=== PATIENT | female | born 1990 | race Caucasian/White ===

== ENCOUNTER → 2017-06-27 00:30 | Observation (INO) ==
[2017-06-26 23:43] LABS: Bilirubin,Urine Negative (Negative); Blood,Urine Negative (Negative); Clarity,Urine Cloudy (Clear); Color,Urine Dark Yellow (Yellow); Glucose,Urine (UA) Normal (Normal); Ketones,Urine Negative (Negative); Leukocyte Esterase,Urine Moderate (Negative); Nitrite,Urine Negative (Negative); PH,Urine 6.5 pH Units (5.0-8.0); Protein,Urine Trace mg/dL (Neg-Trace); Specific Gravity,Urine 1.021 (1.010-1.025); Urobilinogen,Urine Normal (Normal)
[2017-06-26 23:46] LABS: Bacteria,Urine Many per hpf (None-Few); RBC,Urine 0-3 per hpf (0-3); Squamous Epithelial Cell,Urine Many per lpf (None-Few); WBC,Urine 30-50 per hpf (0-3)
[2017-06-26 23:49] LABS: Amphetamine Screen,Urine Negative ng/mL (Cutoff=1000); Barbiturate Screen,Urine Negative ng/mL (Cutoff=200); Benzodiazepines Screen,Urine Negative ng/mL (Cutoff=200); Cannabinoid Screen,Urine Negative ng/mL (Cutoff = 50); Cocaine Screen,Urine Negative ng/mL (Cutoff= 300); Opiate Screen,Urine Negative ng/mL (Cutoff=300); Phencyclidine Screen,Urine Negative ng/mL (Cutoff=25)
[2017-06-26 23:53] LABS: Calcium Oxalate Crystals,Urine Present
[2017-06-26 23:54] LABS: Yeast,Urine Few per hpf (None Seen)
--- NOTE | 2017-06-27 00:13 | OB/GYN Progress Note ---
Date of Encounter: 06/27/17 Time of Encounter: 00:03 - Assessment and Plan (1) 27 weeks gestation of Current Visit: Yes Status: Acute (2) Abdominal pain affecting Current Visit: Yes Status: Acute UA with many squamous, UA sent for culture. (3) Vaginal bleeding in Current Visit: Yes Status: Acute Speculum exam shows no bleeding noted. small amount of thin white discharge. denies itching or burning. negative fern Discharged home with labor precautions. Subjective - Subjective Interval history: 27+2 gestation complains of abdominal pain in RLQ that feels like someone is sticking a needle in at the same point and twisting it. She then had a small amount of dark red/brown bleeding this evening. Reports current good movement, but was decreased earlier in the day. Denies leaking of fluid. Antepartum ROS: vaginal bleeding, movement normal, contractions (Pt states has a few contractions a day as baseline. ), no loss of fluid Objective - Vital Signs Vital Signs: Intake and Output 06/26/17 06/26/17 06/27/17 15:59 23:59 07:59 Other: Weight 85 kg - Exam FHR: auscultation normal FHR comments: Baseline 135 Auscultation: bilateral: normal Abdomen: Present: normal appearance, soft, gravid Uterus: Present: normal Cervical dilation: fingertip/ long - Labs Labs: Abnormal lab results Urine Clarity Cloudy (Clear) A 06/26/17 23:38 Ur Leukocyte Esterase Moderate (Negative) H 06/26/17 23:38 Urine Microscopic WBC 30-50 per hpf (0-3) H 06/26/17 23:38 Ur Squamous Epith Cells Many per lpf (None-Few) H 06/26/17 23:38 Urine Bacteria Many per hpf (None-Few) H 06/26/17 23:38 Urine Yeast Few per hpf (None Seen) H 06/26/17 23:38 Ur Culture Indicated? YES (NO) A 06/26/17 23:38
[2017-06-27 01:25] LABS: Candida DNA ***DETECTED*** (Not Detect); Gardnerella DNA Not Detected (Not Detect); Trichomonas DNA Not Detected (Not Detect)
== END | disposition home or self-care (01) ==
LOC: 1NENULAB
PROVIDERS: ADMIT Advanced Practice Midwife; ATTEND Advanced Practice Midwife

== ENCOUNTER → 2017-07-26 23:18 | Observation (INO) ==
[2017-07-26 21:02] LABS: Bilirubin,Urine Small (Negative); Blood,Urine Negative (Negative); Clarity,Urine Turbid (Clear); Color,Urine Dark Yellow (Yellow); Glucose,Urine (UA) Normal (Normal); Ketones,Urine Trace mg/dL (Negative); Leukocyte Esterase,Urine Moderate (Negative); Nitrite,Urine Negative (Negative); PH,Urine 6.5 pH Units (5.0-8.0); Protein,Urine Trace mg/dL (Neg-Trace); Specific Gravity,Urine 1.024 (1.010-1.025); Urobilinogen,Urine Normal (Normal)
[2017-07-26 21:04] LABS: Bacteria,Urine Many per hpf (None-Few); RBC,Urine 0-3 per hpf (0-3); Squamous Epithelial Cell,Urine Many per lpf (None-Few); WBC,Urine 50-100 per hpf (0-3)
[2017-07-26 21:17] LABS: Hyaline Casts,Urine Few per lpf (None-Few); Uric Acid Crystals,Urine Present
[2017-07-26 22:04] LABS: Amphetamine Screen,Urine Negative ng/mL (Cutoff=1000); Barbiturate Screen,Urine Negative ng/mL (Cutoff=200); Benzodiazepines Screen,Urine Negative ng/mL (Cutoff=200); Cannabinoid Screen,Urine Negative ng/mL (Cutoff = 50); Cocaine Screen,Urine Negative ng/mL (Cutoff= 300); Opiate Screen,Urine Negative ng/mL (Cutoff=300); Phencyclidine Screen,Urine Negative ng/mL (Cutoff=25)
--- NOTE | 2017-07-26 23:07 | Discharge Summary ---
Date of Encounter: 07/26/17 Time of Encounter: 23:07 - Discharge Diagnosis (1) 32 weeks gestation of Priority: Primary Status: Acute Comments: labor evaluation. Continuous monitoring (2) Non-stress test reactive Priority: Secondary Status: Acute Comments: 125 bpm, moderate variability, +15x15 accels no decels. Category I tracing. (3) contractions Priority: Secondary Status: Acute Comments: < 6 contractions per hour. Pt reports they have improved and are not painful. (4) UTI (urinary tract infection) Priority: Secondary Status: Acute Comments: Treat with Macrobid 100 mg po bid x 7 days. Qualifiers: Urinary tract infection type: acute cystitis Hematuria presence: without hematuria Qualified Code(s): N30.00 - Acute cystitis without hematuria - Discharge Medications Prescriptions: Nitrofurantoin Monohyd/M-Cryst [Macrobid 100 mg Capsule] 100 mg PO BID #14 capsule Home Medications: Levothyroxine 12/04/16 [History] Multi Tablet 12/04/16 [History] Nitrofurantoin Monohyd/M-Cryst [Macrobid 100 mg Capsule] 100 mg PO BID #14 capsule 07/26/17 [Rx] Allergies/Adverse Reactions: 3 Allergy/AdvReac Type Severity Reaction Status Date / Time No Known Allergies Allergy Verified 07/26/17 20:47 Data Procedures and tests throughout hospitalization: Laboratory Tests 07/26/17 07/26/17 20:50 20:50 Urine Color Dark Yellow Urine Clarity Turbid A Urine pH 6.5 Ur Specific [place] 1.024 Urine Protein Trace Urine Glucose (UA) Normal Urine Ketones Trace H Urine Blood Negative Urine Nitrite Negative Urine Bilirubin Small H Urine Urobilinogen Normal Ur Leukocyte Esterase Moderate H Urine Microscopic RBC 0-3 Urine Microscopic WBC 50-100 H Ur Squamous Epith Cells Many H Uric Acid Crystals Present Urine Bacteria Many H Hyaline Casts Few Ur Culture Indicated? YES A Urine Opiates Screen Negative Ur Barbiturates Screen Negative Ur Phencyclidine Scrn Negative Ur Amphetamines Screen Negative U Benzodiazepines Scrn Negative Urine Cocaine Screen Negative U Marijuana (THC) Screen Negative Labs on day of discharge: Labs from last 24 hours 07/26/17 07/26/17 20:50 20:50 Urine Color Dark Yellow Urine Clarity Turbid A Urine pH 6.5 Ur Specific [place] 1.024 Urine Protein Trace Urine Glucose (UA) Normal Urine Ketones Trace H Urine Blood Negative Urine Nitrite Negative Urine Bilirubin Small H Urine Urobilinogen Normal Ur Leukocyte Esterase Moderate H Urine Microscopic RBC 0-3 Urine Microscopic WBC 50-100 H Ur Squamous Epith Cells Many H Uric Acid Crystals Present Urine Bacteria Many H Hyaline Casts Few Ur Culture Indicated? YES A Urine Opiates Screen Negative Ur Barbiturates Screen Negative Ur Phencyclidine Scrn Negative Ur Amphetamines Screen Negative U Benzodiazepines Scrn Negative Urine Cocaine Screen Negative U Marijuana (THC) Screen Negative Date of admission: 07/26/17 20:10 Discharging clinician: Sayda Paige Anticipated date of discharge: 07/26/17 - Patient Status Disposition: Home, Self-Care Condition: Good Functional capacity at discharge: independent ambulation - Discharge Instructions Follow Up With: Jaycee Carvalho DO [Partnered Physician] - Additional Instructions: LABOR AND DELIVERY DISCHARGE INSTRUCTIONS Signs and Symptoms to be Reported to your Doctor Immediately: * Sudden gush, continuous or intermittent lead of fluid from vagina (note the time of gush and color of fluid) * Onset of bright red vaginal bleeding with or without pain (if you had a vaginal exam during this visit you may notice some dark red spotting. This is normal.) * Lower abdominal cramping or backache that is premenstrual-like feeling. * More than 6 contractions in one hour. * Burning during urination, having to urinate more frequently or pain in your mid-back. * A change in the baby's activity. This could be an increase or decrease in activity. * Severe headache which does not go away with tylenol. * Sudden swelling in the face, hands, arms and/or legs. * Upper abdominal pain - sometimes associated with heartburn or nausea and is not relieved by Maalox, Mylanta or Tums. * Dizziness or blurred vision or visual disturbances (seeing stars/lights). * Kick Counts One hour after a meal, lay down on one side in a quiet place. Count the number of sonam the baby moves during an hour. If less than 6 movements, notify your physician. Diet: *Force fluids - 8-10 tall glasses of fluid per day. May include popsicles and jello. *Limit caffeine - this includes chocolate, coffee, tea, any soft drink containing such as all ruby, Russ Yellow and Mountain Dew Follow-up with as scheduled. - Diet and Activity Activity: resume usual activities as tolerated Diet: regular diet Hospital Course GRIP BOSS Time Attestation: Total time spent providing and/or coordinating discharge services: Exam - Constitutional General appearance IM: cooperative, A&O X 3, no acute distress - Respiratory Respiratory exam: Present: CTAB - Cardiovascular Cardiovascular exam IM: Present: RRR, +S1, +S2 - GI/Abdominal GI/Abdominal exam IM: normal bowel sounds - Rectal Rectal exam: deferred - Extremities Exam Extremities exam IM: Present: full ROM, normal capillary refill, normal inspection. Absent: calf tenderness, pedal edema - Neurological Exam Neurological exam: alert, oriented X3 - VTE Reasons for not Prescribing Prophylaxis: Treatment not Indicated - Low risk for VTE
== END | disposition home or self-care (01) ==
LOC: 1NENULAB
PROVIDERS: ADMIT Obstetrics & Gynecology; ATTEND Obstetrics & Gynecology

== ENCOUNTER 2017-09-05 07:59 | Inpatient (IN) ==
--- NOTE | 2017-09-04 23:47 | OB/GYN Progress Note ---
Date of Encounter: 09/05/17 Time of Encounter: 23:45 - Assessment and Plan (1) False labor Current Visit: Yes Status: Acute No cervical change noted since exam in office earlier today. Discharge home with precautions once reactive NST. (2) 37 weeks gestation of Current Visit: Yes Status: Acute Subjective - Subjective Interval history: 26 year-old presenting at 37w1d with c/o contractions. She denies LOF or VB. Good FM. No other complaints. Antepartum ROS: movement normal, contractions, no loss of fluid, no vaginal bleeding Objective - Vital Signs Vital Signs: Intake and Output 09/04/17 09/04/17 09/04/17 07:59 15:59 23:59 Other: Weight 85.4 kg Patient Weight 09/04/17 23:59 Weight 85.4 kg - Exam FHR: category 1 FHR comments: NST reactive Abdomen: Present: soft, gravid. Absent: tenderness Uterus: Absent: tenderness Cervical dilation: 3cm x 2 exams per RN Cervix effacement: 50
[2017-09-05 00:41] LABS: Amphetamine Screen,Urine Negative ng/mL (Cutoff=1000); Barbiturate Screen,Urine Negative ng/mL (Cutoff=200); Benzodiazepines Screen,Urine Negative ng/mL (Cutoff=200); Cannabinoid Screen,Urine Negative ng/mL (Cutoff = 50); Cocaine Screen,Urine Negative ng/mL (Cutoff= 300); Opiate Screen,Urine Negative ng/mL (Cutoff=300); Phencyclidine Screen,Urine Negative ng/mL (Cutoff=25)
[2017-09-05 01:21] LABS: Basophils % 0.3 %; Eosinophils # 0.1 K/mcL (0.0-0.6); Eosinophils % 0.7 %; Hematocrit 30.9 % (35.3-44.9); Hemoglobin 10.6 g/dL (11.5-15.4); Immature Granulocytes % 1.3 % (0-4); Lymphocytes # 3.2 K/mcL (0.6-4.6); Lymphocytes % 21.6 %; Mean Corpuscular HGB Conc 34.3 g/dL (31.6-35.5); Mean Corpuscular Hemoglobin 32.4 pg (28.0-33.3); Mean Corpuscular Volume 94.5 fL (83.0-100.0); Mean Platelet Volume 10.6 fL (9.4-12.4); Monocytes # 0.7 K/mcL (0.0-1.3); Neutrophils # 10.5 K/mcL (1.6-8.9); Platelet Count 287 K/mcL (140-400); Red Blood Count 3.27 M/mcL (3.82-4.97); Red Cell Distribution Width 13.4 % (11.5-14.5); Segmented Neutrophils % 71.1 %
[2017-09-05 01:33] LABS: BUN/Creatinine Ratio 11 (6-26); Blood Urea Nitrogen 6 mg/dL (7-20); Calcium 9.9 mg/dL (8.6-10.8); Carbon Dioxide 20 mEq/L (19-29); Chloride 106 mEq/L (98-109); Glucose 81 mg/dL (70-99); Osmolality,Calculated 279 (280-300); Potassium 3.7 mEq/L (3.5-4.5); Sodium 136 mEq/L (136-145); eGFR For African Americans > 60 (> 60); eGFR For Non-African Americans > 60 (> 60)
--- NOTE | 2017-09-05 03:05 | OB/GYN History & Physical ---
Date of Encounter: 09/05/17 Time of Encounter: 02:58 Assessment and Plan (1) False labor Current visit: Yes Status: Acute No cervical change noted. (2) 37 weeks gestation of Current visit: Yes Status: Acute (3) Non-reactive NST (non-stress test) Current visit: Yes Status: Acute Pt has been given an IV fluid bolus and has been repositioned multiple times. Occassional variable decelerations noted. The tracing has never been reactive. Plan for continuous monitoring until am. Will consider BPP vs IOL in am. (4) [place]'s duct cyst Current visit: Yes Status: Acute Pt has had difficulty voiding this evening due to the size of the cyst being approx 2-3cm over urethra. Will consider be[place] if unable to void. Plan is to consult urology following delivery. History of Present Illness Chief complaint: non-reactive NST HPI: Ms. Osorio is a 26 year old female presenting at 37w2d with c/o contractions. She was found to be having false labor. While in triage the FHT tracing was non-reactive. This has been complicated by history of previous child with Dravet Syndrome(). SHe had CVS testing that was normal. 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 Past Med Surg Social Fam HX - Past Medical History Medical history: non-contributory Psychiatric history: anxiety, depression - Past Surgical History Surgical History: other - Social History Smoking Status: Current every day smoker Packs per day: 1/2 Smokeless Tobacco Status: No Alcohol use: none Drug use: none - Family History Mother Adopted: No Family Member Ethnicity: Non- Living Status: Still Living Hx Family Cardiac Disorders: No Hx Family Respiratory Disorders: No Hx Family Cancer: No Hx Family GI Disorders: No Hx Family Genitourinary Disorders: No Hx Family Endocrine Disorder: No Hx Family Musculoskeletal Disorders: No Hx Family Neuromuscular Disorders: No Hx Family Neurologic Disorders: No Hx Family HEENT Disorders: No Hx Family Autoimmune Disorders: No Hx Family Reproductive Disorders: No Hx Family Psychosocial Disorders: No Hx Family Medical Disorders: No Obstetrical History - Pregnancies : 3 Para: 1 Term: 1 : 0 Ab's: 1 Livin Medications and Allergies Levothyroxine 15 mcg PO DAILY 12/04/16 [History] Multi Tablet 1 tab PO DAILY 12/04/16 [History] 3 Allergy/AdvReac Type Severity Reaction Status Date / Time No Known Allergies Allergy Verified 08/22/17 22:57 Review of System OB All systems PM: reviewed and no additional remarkable complaints except as stated Exam - Constitutional Constitutional: well developed, well nourished, no acute distress - HEENT HEENT: Mucus Membranes Moist - Lungs Respiratory exam: CTAB - Cardiovascular Cardiovascular exam: RRR, +S1, +S2 - Abdomen Abdomen: Present: gravid, non tender - Extremities Extremities exam: normal inspection - Cervix Dilation: 3 - Anus/Rectum Anus/Rectum: Present: normal perianal skin Results Result Diagrams: 09/05/17 00:53 09/05/17 00:53 Abnormal lab results WBC 14.7 K/mcL (4.3-11.1) H 09/05/17 00:53 RBC 3.27 M/mcL (3.82-4.97) L 09/05/17 00:53 Hgb 10.6 g/dL (11.5-15.4) L 09/05/17 00:53 Hct 30.9 % (35.3-44.9) L 09/05/17 00:53 Neutrophils # 10.5 K/mcL (1.6-8.9) H 09/05/17 00:53 BUN 6 mg/dL (7-20) L 09/05/17 00:53 Creatinine 0.56 mg/dL (0.57-1.11) L 09/05/17 00:53 Calculated Osmolality 279 (280-300) L 09/05/17 00:53 All other labs normal. - VTE Reasons for not Prescribing Prophylaxis: Treatment not Indicated - Low risk for VTE
[2017-09-05 03:23] LABS: Bilirubin,Urine Small (Negative); Blood,Urine Negative (Negative); Clarity,Urine Cloudy (Clear); Color,Urine Dark Yellow (Yellow); Glucose,Urine (UA) Normal (Normal); Ketones,Urine Negative (Negative); Leukocyte Esterase,Urine Negative (Negative); Nitrite,Urine Negative (Negative); Protein,Urine Trace mg/dL (Neg-Trace); Specific Gravity,Urine 1.023 (1.010-1.025); Urobilinogen,Urine Normal (Normal)
[2017-09-05 03:41] LABS: Hyaline Casts,Urine None Seen per lpf (None-Few); Mucus,Urine Moderate (Few); RBC,Urine 0-3 per hpf (0-3); Renal Epithelial Cells,Urine Moderate per hpf (None-Few); Squamous Epithelial Cell,Urine Few per lpf (None-Few); WBC,Urine 0-3 per hpf (0-3)
[2017-09-05 03:42] LABS: Bacteria,Urine Few per hpf (None-Few); Calcium Oxalate Crystals,Urine Present
[~2017-09-05 07:59] MED LIST: *HR* Nalbuphine 20 MG/ML AMPUL IVP PRN; Famotidine 20 MG/2 ML VIAL IVP PRN; Metoclopramide 10 MG/2 ML VIAL IVP PRN; Naloxone 0.4 MG/ML INJ IVP PRN; Ondansetron 4 MG/2 ML VIAL IVP PRN; Ringers Solution, Lactated 1,000 ML IVC ONE; Ringers Solution, Lactated 1,000 ML ONE
[2017-09-05] MEDS ORDERED: Ringers Solution, Lactated 1,000 ML IVC SCH (08:00)
[2017-09-05] MEDS ORDERED: miSOPROStol 25 MCG TABLET VG PRN (08:07)
--- NOTE | 2017-09-05 08:14 | OB Labor Progress Note ---
Date of Encounter: 09/05/17 Time of Encounter: 08:10 Labor Progress Note - Subjective Subjective: Patient resting comfortably in bed. Agreeable to IOL today for category II tracing and skene's duct partial urethral obstruction - Vital Signs Vital Signs: VSS - Cervix Cervix: 3/70/-3 - Heart Tones Heart Tones: 130-140's moderate variability - [place]: No contractions noted. - Plan Plan: Admit for induction of labor Patient may shower and eat breakfast prior to IOL Cytotec PV for IOL Patient may have nubain/epidural upon request Anticipate vaginal delivery POC per consult with Dr Allan.
[2017-09-05] MEDS ORDERED: *HR* FentaNYL (PF) 100 MCG/2 ML VIAL ONE (11:23)
[2017-09-05] MEDS ORDERED: *HR* Succinylcholine 200 MG/10 ML VIAL IVP ONE (11:23)
[2017-09-05] MEDS ORDERED: *HR* Rocuronium Bromide 50 MG/5 ML VIAL ONE (11:23)
[2017-09-05] MEDS ORDERED: *HR* Oxytocin 10 UNIT/ML VIAL IM ONE ×2 (11:23→11:25)
[2017-09-05] MEDS ORDERED: *HR* Propofol 200 MG/20 ML VIAL IVP ONE (11:23)
[2017-09-05] MEDS ORDERED: Ringers Solution, Lactated 1,000 ML ONE (11:25)
[2017-09-05] MEDS ORDERED: Ondansetron 4 MG/2 ML VIAL ONE (11:31)
[2017-09-05] MEDS ORDERED: Dexamethasone 4 MG/ML VIAL ONE (11:31)
[2017-09-05] MEDS ORDERED: *HR* HYDROmorphone (PF) 1 MG/ML SYRINGE ONE ×2 (11:38→12:00)
[2017-09-05] MEDS ORDERED: Ondansetron 4 MG/2 ML VIAL IVP ONE (11:44)
[2017-09-05] MEDS ORDERED: *HR* HYDROmorphone (PF) 1 MG/ML SYRINGE IVP PRN (11:44)
[2017-09-05] MEDS ORDERED: *HR* Morphine 2 MG/ML SYRINGE IVP PRN ×2 (11:44→14:43)
[2017-09-05] MEDS ORDERED: *HR* Promethazine 25 MG/ML VIAL IVP PRN (11:44)
[2017-09-05] MEDS ORDERED: Acetaminophen IV 1,000 MG/100 ML INFUS..BTL IVPB ONE (11:45)
--- NOTE | 2017-09-05 11:50 | Anesthesia Evaluation PreOp ---
Date of Encounter: 09/05/17 Time of Encounter: 11:00 - Past History Planned Operation: emergency c section Cardiac History: Denies any Significant Hx Pulmonary History: Denies Any Significant HX LANDSCAPE PAINTER History: Denies Any Significant HX Other Medical History: Denies Any Significant HX Anesthesia History: No Prior Anesthetic Complications (no family history anesthetic problems.) : Yes Alcohol Use: none Drug use: none Medications and Allergies Levothyroxine 15 mcg PO DAILY 12/04/16 [History] Multi Tablet 1 tab PO DAILY 12/04/16 [History] 3 Allergy/AdvReac Type Severity Reaction Status Date / Time No Known Allergies Allergy Verified 08/22/17 22:57 - Meds/Allergy Pre-op Review Medications Reviewed: Yes Allergies Reviewed: Yes Beta Blockers on Current Med List: No Anesthesia Results - Labs 09/05/17 00:53 09/05/17 00:53 Anesthesia Exam - HEENT Pupil (Motor): Pupils equal, EOMI Mallampati: II Teeth: Normal Oral Opening: Greater than 3 - LANDSCAPE PAINTER LANDSCAPE PAINTER Motor: Normal RUE, Normal LUE, Normal RLE, Normal LLE, Normal Face LANDSCAPE PAINTER Sensory: Normal: RUE, LUE, RLE, LLE, Face - Cardiac Rhythm: Regular - Pulmonary Breath Sounds: bilateral Clear Respiratory Effort: Symmetrical Anesthesia Assess/Plan ASA Score: 2, E Modified [place] Scale for Level of Consciousness: Cooperative, oriented, and tranquil Anesthetic Plan: General Monitoring Plan: Standard Monitors Recovery Plan: PACU
--- NOTE | 2017-09-05 12:32 | OB/GYN Procedure Note ---
Section - Date of procedure: 09/05/17 Preop diagnosis: category 2 FHT tracing Post-op diagnosis: same Procedure: primary low transverse Surgeon: Mega Allan Estimated blood loss (cc): 700 Anesthesia Type: General section complications: none Disposition: PACU Specimens: Placenta - Infant (s) A Infant Delivery Date: 09/05/17 Delivery Time: :17 Presentation: vertex Gender: Female Viability: Viable Pounds: 7 Ounces: 9 at 1 minute: 5 at 5 minutes: 7 Placenta: complete extraction - Narrative Narrative: Patient was taken to the operating room. She was prepped and draped in usual manner. Appropriate timeout was obtained. After satisfactory anesthesia was achieved, the abdomen was entered through standard Maylard incision. The Lv retractor was placed. The peritoneum overlying the lower uterine segment was incised in U-shaped fashion. The uterine cavity was entered sharply and extended laterally. Fluid was clear. With fundal pressure, the head was delivered. suctioned upon delivery of the head. The remainder of the was delivered, umbilical cord doubly clamped and cut, and handed to nursery staff for further evaluation. Placenta was removed and sent to pathology for analysis. Uterus closed in single layer using 0 Monocryl. Peritoneum overlying the lower uterine segment was closed with a 2-0 Vicryl. After assurance of hemostasis, the abdomen was closed with a 0 Vicryl on the fascia and 3-0 Monocryl in the skin. Sterile dressing was applied. Patient did well and was taken to recovery in satisfactory condition. Counts were correct.
[2017-09-05] MEDS ORDERED: Oxytocin 20 units/ LR 1000 mL 40 UNIT/2,000 ML BAG IVC ONE (12:36)
--- NOTE | 2017-09-05 13:40 | Anesthesia Evaluation Post Op ---
Date of Encounter: 09/05/17 Time of Encounter: 13:39 - Vital Signs Vital Signs: VSS - Lungs Lungs: Clear Ascult./Percussion - Airway Airway: Non-obstructed - Cardiovascular Regular Rate - Mental Status Mental Status: Asleep with brisk response to light stimulation - Pain Pain Scale: 6 (down from 9) Pain Scale used: Numeric (1 - 10) - Nausea Vomiting Nausea Vomiting: Not Present - Hydration Hydration: Quint[place] catheter - Discharge PostOp Status: Transfer Patient to floor
[2017-09-05] MEDS ORDERED: Sennosides 8.6 MG TABLET PO PRN (14:43)
[2017-09-05] MEDS ORDERED: Simethicone 80 MG TAB.CHEW PO PRN (14:43)
[2017-09-05] MEDS ORDERED: Metoclopramide 10 MG/2 ML VIAL IVP PRN (14:43)
[2017-09-05] MEDS ORDERED: Ondansetron 4 MG/2 ML VIAL IVP PRN (14:43)
[2017-09-05] MEDS ORDERED: Oxytocin 20 units/ LR 1000 mL 20 UNIT/1,000 ML BAG IVC SCH (14:43)
[2017-09-05] MEDS ORDERED: Acetaminophen 325 MG TABLET PO PRN (14:43)
--- NOTE | 2017-09-05 17:47 | Urology - Consult Note ---
Date of Encounter: 09/05/17 Time of Encounter: 17:44 - Assessment and Plan (1) [place]'s duct cyst Current Visit: Yes Status: Acute Assessment and plan: 26-year-old woman with a history of a [place]'s gland cyst. She was not a good position for a pelvic exam today. I will obtain an MRI of the pelvis with and without contrast to further evaluate. Confirmation of a [place]'s gland cyst versus urethral diverticulum is important for surgical planning standpoint. I will order the study and will discuss further. Urology CN:HPI Consult date: 09/05/17 Reason for consult Urology: Other ([place]'s gland cyst) History of present illness: 26-year-old woman is status post section today and I was consulted to evaluate for [place]'s gland cyst. She says it had been getting larger during the course of her . It is causing her discomfort. She says the size makes it difficult for her to urinate. She was being transported to the nursery to see her child. No imaging has been obtained regarding this cyst. I was not able to examine her today. Past Med Surg Social Fam HX - Past Medical History Medical history: non-contributory Psychiatric history: anxiety, depression - Past Surgical History Surgical History: other - Social History Smoking Status: Current every day smoker Packs per day: 1/2 Smokeless Tobacco Status: No Alcohol use: none Drug use: none - Family History Mother Adopted: No Family Member Ethnicity: Non- Living Status: Still Living Hx Family Cardiac Disorders: No Hx Family Respiratory Disorders: No Hx Family Cancer: No Hx Family GI Disorders: No Hx Family Genitourinary Disorders: No Hx Family Endocrine Disorder: No Hx Family Musculoskeletal Disorders: No Hx Family Neuromuscular Disorders: No Hx Family Neurologic Disorders: No Hx Family HEENT Disorders: No Hx Family Autoimmune Disorders: No Hx Family Reproductive Disorders: No Hx Family Psychosocial Disorders: No Hx Family Medical Disorders: No Medications and Allergies Levothyroxine 15 mcg PO DAILY 12/04/16 [History] Multi Tablet 1 tab PO DAILY 12/04/16 [History] 3 Allergy/AdvReac Type Severity Reaction Status Date / Time No Known Allergies Allergy Verified 08/22/17 22:57 Review of Systems - Constitutional no chills, no fever(s) - EENT Nose, mouth and throat: no dizziness - Cardiovascular no chest pain - Respiratory no dyspnea - Gastrointestinal no nausea, no vomiting - Genitourinary Genitourinary: no flank pain, no hematuria - Musculoskeletal no back pain - Integumentary no erythema, no rash - Neurological no weakness - Psychiatric no suicidal ideation - Hematologic/Lymphatic no easy bleeding - Allergic/Immunologic no wheezing Exam Initial Vital Signs Temp Pulse Resp BP Pulse Ox 98.0 F 69 16 112/68 93 09/05/17 14:30 09/05/17 14:30 09/05/17 14:30 09/05/17 14:30 09/05/17 14:30 - General physical appearance Present: well developed, well nourished, no distress - Eyes Absent: icteric - ENT Present: normal nares - Neck Present: trachea midline - Respiratory Present: normal respiratory effort - Cardiovascular Cardiovascular exam IM: RRR - Abdomen Abdomen: Present: soft Urology Results - Labs 09/05/17 00:53 09/05/17 00:53 Abnormal lab results WBC 14.7 K/mcL (4.3-11.1) H 09/05/17 00:53 RBC 3.27 M/mcL (3.82-4.97) L 09/05/17 00:53 Hgb 10.6 g/dL (11.5-15.4) L 09/05/17 00:53 Hct 30.9 % (35.3-44.9) L 09/05/17 00:53 Neutrophils # 10.5 K/mcL (1.6-8.9) H 09/05/17 00:53 BUN 6 mg/dL (7-20) L 09/05/17 00:53 Creatinine 0.56 mg/dL (0.57-1.11) L 09/05/17 00:53 Calculated Osmolality 279 (280-300) L 09/05/17 00:53 Urine Clarity Cloudy (Clear) A 09/05/17 00:16 Urine Bilirubin Small (Negative) H 09/05/17 00:16 Ur Renal Epithelial Cell Moderate per hpf (None-Few) H 09/05/17 00:16 Urine Mucus Moderate (Few) H 09/05/17 00:16 Diabetes panel 09/05/17 Range/Units 00:53 Sodium 136 (136-145) mEq/L Potassium 3.7 (3.5-4.5) mEq/L Chloride 106 (98-109) mEq/L Carbon Dioxide 20 (19-29) mEq/L BUN 6 L (7-20) mg/dL Creatinine 0.56 L (0.57-1.11) mg/dL Glucose 81 (70-99) mg/dL Calcium 9.9 (8.6-10.8) mg/dL Calcium panel 09/05/17 Range/Units 00:53 Calcium 9.9 (8.6-10.8) mg/dL Pituitary panel 09/05/17 Range/Units 00:53 Sodium 136 (136-145) mEq/L Potassium 3.7 (3.5-4.5) mEq/L Chloride 106 (98-109) mEq/L Carbon Dioxide 20 (19-29) mEq/L BUN 6 L (7-20) mg/dL Creatinine 0.56 L (0.57-1.11) mg/dL Glucose 81 (70-99) mg/dL Calcium 9.9 (8.6-10.8) mg/dL Adrenal panel 09/05/17 Range/Units 00:53 Sodium 136 (136-145) mEq/L Potassium 3.7 (3.5-4.5) mEq/L Chloride 106 (98-109) mEq/L Carbon Dioxide 20 (19-29) mEq/L BUN 6 L (7-20) mg/dL Creatinine 0.56 L (0.57-1.11) mg/dL Glucose 81 (70-99) mg/dL Calcium 9.9 (8.6-10.8) mg/dL All other labs normal.
[2017-09-05] MEDS: Ibuprofen 600 MG TABLET PO PRN (20:47)
[2017-09-05] MEDS: *HR* OxyCODONE/APAP 5/325 TABLET PO PRN (20:48)
[2017-09-06] MEDS: Ibuprofen 600 MG TABLET PO PRN ×2 (04:03→21:59)
[2017-09-06] MEDS: *HR* OxyCODONE/APAP 5/325 TABLET PO PRN ×3 (04:04→15:02)
[2017-09-06 04:39] LABS: Basophils # 0.1 K/mcL (0.0-0.2); Basophils % 0.3 %; Eosinophils # 0.1 K/mcL (0.0-0.6); Eosinophils % 0.5 %; Hematocrit 27.8 % (35.3-44.9); Hemoglobin 9.4 g/dL (11.5-15.4); Immature Granulocytes % 1.3 % (0-4); Lymphocytes # 3.5 K/mcL (0.6-4.6); Lymphocytes % 20.8 %; Mean Corpuscular HGB Conc 33.8 g/dL (31.6-35.5); Mean Corpuscular Hemoglobin 31.6 pg (28.0-33.3); Mean Corpuscular Volume 93.6 fL (83.0-100.0); Mean Platelet Volume 10.1 fL (9.4-12.4); Monocytes # 0.9 K/mcL (0.0-1.3); Monocytes % 5.5 %; Nucleated Red Blood Cells 0.1 /100 WBC (0); Platelet Count 255 K/mcL (140-400); Red Blood Count 2.97 M/mcL (3.82-4.97); Red Cell Distribution Width 13.3 % (11.5-14.5); Segmented Neutrophils % 71.6 %
[2017-09-06] MEDS: Prenatal Vit/FA 1 EACH TABLET PO SCH (08:54)
--- NOTE | 2017-09-06 08:54 | Urology Progress Note ---
Date of Encounter: 09/06/17 Time of Encounter: 08:52 - Assessment and Plan (1) [place]'s duct cyst Current Visit: Yes Status: Acute Assessment and plan: MRI reviewed. Will have her visit with Dr. Maloney as an outpatient to discuss surgical removal. I briefly discussed her condition with him. Progress Note Narrative: MRI obtained last night. Study reviewed. Catheter was removed, and she is able to void. Objective Initial Vital Signs Temp Pulse Resp BP Pulse Ox 98.0 F 69 16 112/68 93 09/05/17 14:30 09/05/17 14:30 09/05/17 14:30 09/05/17 14:30 09/05/17 14:30 - General physical appearance Present: well developed, well nourished, no distress - Respiratory Present: normal respiratory effort - Labs 09/06/17 04:28 09/05/17 00:53 - VTE Reasons for not Prescribing Prophylaxis: Treatment not Indicated - Low risk for VTE Documentation of Mechanical Device: Intermittent pneumatic compression device
--- NOTE | 2017-09-07 03:24 | OB/GYN Progress Note ---
Date of Encounter: 09/06/17 Time of Encounter: 23:50 - Assessment and Plan (1) Vaginal delivery Current Visit: Yes Status: Acute Stable POD #1 continue current management. (2) [place]'s duct cyst Current Visit: Yes Status: Acute Pt seen by urology, MRI reviewed by urology may follow up out patient. Subjective - Subjective Interval history: Pt resting in room with most of day, pain well managed on po pain medication per staff reporter, voiding without difficulty. Patient reports: appetite normal, voiding normally, pain well controlled : doing well, nursing well Objective - Vital Signs Latest vital signs: Vital Signs Temp Pulse Resp BP Pulse Ox 09/06/17 12:00 98.4 F 71 16 105/70 09/06/17 08:00 98.1 F 106 16 110/76 92 09/06/17 04:42 98.6 F 80 14 105/68 95 Intake and Output 09/06/17 09/06/17 09/07/17 15:59 23:59 07:59 Intake Total 240 / 240 700 / 700 Output Total 1500 / 1500 900 / 900 600 / 600 Balance -1260 / -1260 -900 / -900 100 / 100 Intake: Oral 240 / 240 700 / 700 Output: Urine 1500 / 1500 900 / 900 600 / 600 Other: Meal Lunch Percent of Meal Consumed 100% Weight 81.8 kg Patient Weight 09/07/17 23:59 Weight 81.8 kg - Exam Abdomen: Present: soft Incision: Present: dressed Uterus: Present: firm (per RN ) - Labs Labs: Laboratory Results - last 24 hr 09/06/17 04:28 WBC 16.7 H RBC 2.97 L Hgb 9.4 L Hct 27.8 L MCV 93.6 MCH 31.6 MCHC 33.8 RDW 13.3 Plt Count 255 MPV 10.1 Immature Gran % 1.3 Seg Neutrophils % 71.6 Lymphocytes % 20.8 Monocytes % 5.5 Eosinophils % 0.5 Basophils % 0.3 Neutrophils # 12.0 H Lymphocytes # 3.5 Monocytes # 0.9 Eosinophils # 0.1 Basophils # 0.1 Nucleated RBCs/100 WBC 0.1 H
--- NOTE | 2017-09-07 03:32 | Discharge Summary ---
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 Voiding without difficulty. (2) delivery delivered Priority: Primary Status: Acute Comments: Pain well managed on po pain medication, Tolerates po diet, voiding without difficulty. - Discharge Medications Prescriptions: OxyCODONE/APAP 5/325 [Percocet 5/325 MG] 1 each PO Q4HR PRN #10 tablet PRN Reason: Moderate pain 4-6 Ibuprofen [Motrin] 600 mg PO Q6HR PRN #60 tablet PRN Reason: Cramping Docusate [Colace] 100 mg PO BID #60 capsule Ferrous Sulfate 325 mg PO DAILY #60 tablet Home Medications: Levothyroxine 15 mcg PO DAILY 12/04/16 [History] Multi Tablet 1 tab PO DAILY 12/04/16 [History] Acetaminophen [Tylenol] 325 mg PO Q6HR PRN tablet 09/07/17 [Rx] Docusate [Colace] 100 mg PO BID #60 capsule 09/07/17 [Rx] Ferrous Sulfate 325 mg PO DAILY #60 tablet 09/07/17 [Rx] Ibuprofen [Motrin] 600 mg PO Q6HR PRN #60 tablet 09/07/17 [Rx] OxyCODONE/APAP 5/325 [Percocet 5/325 MG] 1 each PO Q4HR PRN #10 tablet 09/07/17 [Rx] Vit/FA 1 each PO DAILY tablet 09/07/17 [Rx] Allergies/Adverse Reactions: 3 Allergy/AdvReac Type Severity Reaction Status Date / Time No Known Allergies Allergy Verified 08/22/17 22:57 Data Procedures and tests throughout hospitalization: Laboratory Tests 09/05/17 09/05/17 09/05/17 00:16 00:16 00:53 WBC 14.7 H RBC 3.27 L Hgb 10.6 L Hct 30.9 L MCV 94.5 MCH 32.4 MCHC 34.3 RDW 13.4 Plt Count 287 MPV 10.6 Immature Gran % 1.3 Seg Neutrophils % 71.1 Lymphocytes % 21.6 Monocytes % 5.0 Eosinophils % 0.7 Basophils % 0.3 Neutrophils # 10.5 H Lymphocytes # 3.2 Monocytes # 0.7 Eosinophils # 0.1 Basophils # 0.0 Nucleated RBCs/100 WBC Sodium Potassium Chloride Carbon Dioxide BUN Creatinine Est GFR ( Amer) Est GFR (Non-Af Amer) BUN/Creatinine Ratio Glucose Calculated Osmolality Calcium Urine Color Dark Yellow Urine Clarity Cloudy A Urine pH 7.0 Ur Specific [place] 1.023 Urine Protein Trace Urine Glucose (UA) Normal Urine Ketones Negative Urine Blood Negative Urine Nitrite Negative Urine Bilirubin Small H Urine Urobilinogen Normal Ur Leukocyte Esterase Negative Urine Microscopic RBC 0-3 Urine Microscopic WBC 0-3 Ur Squamous Epith Cells Few Ur Renal Epithelial Cell Moderate H Calcium Oxalate Crystal Present Urine Bacteria Few Hyaline Casts None Seen Urine Mucus Moderate H Ur Culture Indicated? NO Urine Opiates Screen Negative Ur Barbiturates Screen Negative Ur Phencyclidine Scrn Negative Ur Amphetamines Screen Negative U Benzodiazepines Scrn Negative Urine Cocaine Screen Negative U Marijuana (THC) Screen Negative 09/05/17 09/06/17 00:53 04:28 WBC 16.7 H RBC 2.97 L Hgb 9.4 L Hct 27.8 L MCV 93.6 MCH 31.6 MCHC 33.8 RDW 13.3 Plt Count 255 MPV 10.1 Immature Gran % 1.3 Seg Neutrophils % 71.6 Lymphocytes % 20.8 Monocytes % 5.5 Eosinophils % 0.5 Basophils % 0.3 Neutrophils # 12.0 H Lymphocytes # 3.5 Monocytes # 0.9 Eosinophils # 0.1 Basophils # 0.1 Nucleated RBCs/100 WBC 0.1 H Sodium 136 Potassium 3.7 Chloride 106 Carbon Dioxide 20 BUN 6 L Creatinine 0.56 L Est GFR ( Amer) > 60 Est GFR (Non-Af Amer) > 60 BUN/Creatinine Ratio 11 Glucose 81 Calculated Osmolality 279 L Calcium 9.9 Urine Color Urine Clarity Urine pH Ur Specific [place] Urine Protein Urine Glucose (UA) Urine Ketones Urine Blood Urine Nitrite Urine Bilirubin Urine Urobilinogen Ur Leukocyte Esterase Urine Microscopic RBC Urine Microscopic WBC Ur Squamous Epith Cells Ur Renal Epithelial Cell Calcium Oxalate Crystal Urine Bacteria Hyaline Casts Urine Mucus Ur Culture Indicated? Urine Opiates Screen Ur Barbiturates Screen Ur Phencyclidine Scrn Ur Amphetamines Screen U Benzodiazepines Scrn Urine Cocaine Screen U Marijuana (THC) Screen Labs on day of discharge: Labs from last 24 hours 09/06/17 04:28 WBC 16.7 H RBC 2.97 L Hgb 9.4 L Hct 27.8 L MCV 93.6 MCH 31.6 MCHC 33.8 RDW 13.3 Plt Count 255 MPV 10.1 Immature Gran % 1.3 Seg Neutrophils % 71.6 Lymphocytes % 20.8 Monocytes % 5.5 Eosinophils % 0.5 Basophils % 0.3 Neutrophils # 12.0 H Lymphocytes # 3.5 Monocytes # 0.9 Eosinophils # 0.1 Basophils # 0.1 Nucleated RBCs/100 WBC 0.1 H - Impressions ITS Impressions Pelvis X-Ray 09/05/17 11:41 IMPRESSION: 1. No acute soft tissue or osseous abnormality. 2. No evidence of a pelvic retained sponge or utensil. D/ / 09/05/2017 12:40:33 Renato Conde MD / elizabeth Interpreting Provider: Renato Conde MD Pelvis MRI 09/05/17 17:47 IMPRESSION: 1. 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 D/ / 09/05/2017 21:16:31 Sixto Payne MD / elizabeth Interpreting Provider: Sixto Payne MD Date of admission: 09/05/17 07:59 Primary care physician: PCP NONE Consults: 09/05/17 15:25 Consult to [employer] Programmer Analyst (W&C) [CONS] Routine Reason For Exam: Reason for SW Consult: Hx drug use, unsure of FOB, hx abuse in 2017, loss of 2 yr old from genetic disease Discharging clinician: Karen Hensley Anticipated date of discharge: 09/07/17 - Patient Status Disposition: Home, Self-Care Condition: Good Functional capacity at discharge: independent ambulation Overall status at discharge: patient is back to baseline - Discharge Instructions Follow Up With: NONE,PCP [Primary Care Provider] - - Diet and Activity Activity: resume usual activities as tolerated Diet: regular diet Hospital Course Reason for admission: active labor Delivery: section Episiotomy: none Laceration: none Other procedures: none complications: none Discharge diagnosis: IUP at term delivered [place] baby: female Hospital course: - Date of procedure: 09/05/17 Preop diagnosis: category 2 FHT tracing Procedure: primary low transverse Surgeon: Mega Allan Estimated blood loss (cc): 700 Anesthesia Type: General section complications: none Disposition: PACU Specimens: Placenta - Infant (s) A Delivery Date: 09/05/17 Infant Delivery Time: :17 Presentation: vertex Gender: Female Viability: Viable Pounds: 7 Ounces: 9 at 1 minute: 5 at 5 minutes: 7 Placenta: complete extraction Stable and appropriate for discharge. Time Attestation: Total time spent providing and/or coordinating discharge services: Time Spent: Less than 30 minutes - VTE Reasons for not Prescribing Prophylaxis: Treatment not Indicated - Low risk for VTE Documentation of Mechanical Device: Intermittent pneumatic compression device Exam - Constitutional Vitals: Temp Pulse Resp BP Pulse Ox 98.4 F 71 16 105/70 92 09/06/17 12:00 09/06/17 12:00 09/06/17 12:00 09/06/17 12:00 09/06/17 08:00 General appearance IM: A&O X 3 - Respiratory Respiratory exam: Present: CTAB - Cardiovascular Cardiovascular exam IM: Present: RRR - GI/Abdominal GI/Abdominal exam IM: normal bowel sounds, soft Incision: dressed (JOSE EDUARDO in place ) - Uterine Tone: Firm Uterus Position: At Umbilicus - Extremities Exam Extremities exam IM: Present: normal capillary refill - Neurological Exam Neurological exam: normal gait, oriented X3 - Psychiatric Additional comments: Pt with flat affect - Other Additional findings: Perineal inspection shows enlarged skene gland.Pt states able to void without difficulty
--- NOTE | 2017-09-07 07:57 | Urology Progress Note ---
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 will sign off. Progress Note Narrative: Doing well today. She is voiding okay. Case d/w Dr. Maloney. He will see her as an outpatient next week. Objective Initial Vital Signs Temp Pulse Resp BP Pulse Ox 98.0 F 69 16 112/68 93 09/05/17 14:30 09/05/17 14:30 09/05/17 14:30 09/05/17 14:30 09/05/17 14:30 - General physical appearance Present: well developed, well nourished, no distress - Respiratory Present: normal respiratory effort - Labs 09/06/17 04:28 09/05/17 00:53 - VTE Reasons for not Prescribing Prophylaxis: Treatment not Indicated - Low risk for VTE Documentation of Mechanical Device: Intermittent pneumatic compression device Consult Discharge Plan - Plan Referrals: NONE,PCP [Primary Care Provider] - Prescriptions: OxyCODONE/APAP 5/325 [Percocet 5/325 MG] 1 each PO Q4HR PRN #10 tablet PRN Reason: Moderate pain 4-6 Ibuprofen [Motrin] 600 mg PO Q6HR PRN #60 tablet PRN Reason: Cramping Breast Pump [BREAST PUMP] 1 each .ROUTE AD #1 each Docusate [Colace] 100 mg PO BID #60 capsule Ferrous Sulfate 325 mg PO DAILY #60 tablet
[2017-09-07 08:09] VITALS: BP 97/62
[2017-09-07] MEDS: *HR* OxyCODONE/APAP 5/325 TABLET PO PRN (08:20)
[2017-09-07] MEDS: Ibuprofen 600 MG TABLET PO PRN (08:21)
[2017-09-07] MEDS: Prenatal Vit/FA 1 EACH TABLET PO SCH (08:25)
== END 2017-09-07 11:43 | disposition home or self-care (01) | DRG 540 ==
LOC: 1NENULAB → 1NENUOBS 14:53
PROVIDERS: ADMIT Registered Nurse; ATTEND Registered Nurse

== ENCOUNTER 2019-06-22 13:01 | Observation (INO) ==
[2019-06-22 14:41] LABS: Amphetamine Screen,Urine Negative ng/mL (Cutoff=1000); Barbiturate Screen,Urine Negative ng/mL (Cutoff=200); Benzodiazepines Screen,Urine Negative ng/mL (Cutoff=200); Cannabinoid Screen,Urine Negative ng/mL (Cutoff = 50); Cocaine Screen,Urine Negative ng/mL (Cutoff= 300); Opiate Screen,Urine Negative ng/mL (Cutoff=300); Phencyclidine Screen,Urine Negative ng/mL (Cutoff=25)
[2019-06-22 14:49] LABS: Bilirubin,Urine Negative (Negative); Blood,Urine Negative (Negative); Clarity,Urine Clear (Clear); Color,Urine Yellow (Yellow); Glucose,Urine (UA) Normal (Normal); Ketones,Urine Negative (Negative); Leukocyte Esterase,Urine Negative (Negative); Nitrite,Urine Negative (Negative); Protein,Urine Negative (Neg-Trace); Specific Gravity,Urine 1.015 (1.010-1.025); Urobilinogen,Urine Normal (Normal)
--- NOTE | 2019-06-22 15:36 | OB/GYN Progress Note ---
Date of Encounter: 06/22/19 Time of Encounter: 15:34 - Assessment and Plan (1) 28 weeks gestation of Status: Acute (2) Encounter for suspected PROM, with rupture of membranes not found Status: Acute Speculum exam shows normal discharge of . Ferning negative. UA negative. Discharged home with labor and when to return to triage precautions. Patient verbalizes understanding and in agreement with plan Subjective - Subjective Antepartum ROS: loss of fluid, movement normal, other, no vaginal bleeding, no contractions Objective - Vital Signs Vital Signs: Intake and Output 06/21/19 06/22/19 06/22/19 23:59 07:59 15:59 Other: Weight 86.6 kg Patient Weight 06/22/19 23:59 Weight 86.6 kg - Exam FHR: auscultation normal FHR comments: Baseline 135 Abdomen: Present: soft, gravid Comments: Speculum exam shows normal discharge of . Cervix visually closed.
== END 2019-06-22 15:09 | disposition home or self-care (01) ==
LOC: 1NENULAB
PROVIDERS: ADMIT Advanced Practice Midwife; ATTEND Advanced Practice Midwife

== ENCOUNTER → 2019-07-11 14:08 | Observation (INO) ==
[2019-07-11 13:11] LABS: Bilirubin,Urine Negative (Negative); Blood,Urine Negative (Negative); Clarity,Urine Cloudy (Clear); Color,Urine Dark Yellow (Yellow); Glucose,Urine (UA) Normal (Normal); Ketones,Urine Negative (Negative); Leukocyte Esterase,Urine Small (Negative); Nitrite,Urine Negative (Negative); Protein,Urine Trace mg/dL (Neg-Trace); Specific Gravity,Urine 1.023 (1.010-1.025); Urobilinogen,Urine Normal (Normal)
[2019-07-11 13:13] LABS: Bacteria,Urine Moderate per hpf (None-Few); Squamous Epithelial Cell,Urine Many per lpf (None-Few)
[2019-07-11 13:35] LABS: Amphetamine Screen,Urine Negative ng/mL (Cutoff=1000); Barbiturate Screen,Urine Negative ng/mL (Cutoff=200); Benzodiazepines Screen,Urine Negative ng/mL (Cutoff=200); Cannabinoid Screen,Urine Negative ng/mL (Cutoff = 50); Cocaine Screen,Urine Negative ng/mL (Cutoff= 300); Opiate Screen,Urine Negative ng/mL (Cutoff=300); Phencyclidine Screen,Urine Negative ng/mL (Cutoff=25)
[2019-07-11 15:06] LABS: Candida DNA Not Detected (Not Detect); Gardnerella DNA DETECTED (Not Detect); Trichomonas DNA Not Detected (Not Detect)
== END | disposition home or self-care (01) ==
LOC: 1NENULAB
PROVIDERS: ADMIT Advanced Practice Midwife; ATTEND Advanced Practice Midwife

== ENCOUNTER → 2019-09-04 00:30 | Observation (INO) ==
[2019-09-03 23:34] LABS: Basophils % 0.3 %; Eosinophils # 0.2 K/mcL (0.0-0.6); Eosinophils % 0.9 %; Hematocrit 33.5 % (35.3-44.9); Hemoglobin 11.8 g/dL (11.5-15.4); Immature Granulocytes % 1.2 % (0-4); Lymphocytes # 3.7 K/mcL (0.6-4.6); Mean Corpuscular HGB Conc 35.2 g/dL (31.6-35.5); Mean Corpuscular Hemoglobin 32.4 pg (28.0-33.3); Monocytes # 0.6 K/mcL (0.0-1.3); Neutrophils # 11.2 K/mcL (1.6-8.9); Platelet Count 363 K/mcL (140-400); Red Blood Count 3.64 M/mcL (3.82-4.97); Red Cell Distribution Width 13.7 % (11.5-14.5); Segmented Neutrophils % 70.6 %; White Blood Count 15.9 K/mcL (4.3-11.1)
[2019-09-03 23:38] LABS: Amphetamine Screen,Urine Negative ng/mL (Cutoff=1000); Barbiturate Screen,Urine Negative ng/mL (Cutoff=200); Benzodiazepines Screen,Urine Negative ng/mL (Cutoff=200); Cannabinoid Screen,Urine Negative ng/mL (Cutoff = 50); Cocaine Screen,Urine Negative ng/mL (Cutoff= 300); Creatinine,Urine 178 mg/dL; Opiate Screen,Urine Negative ng/mL (Cutoff=300); Phencyclidine Screen,Urine Negative ng/mL (Cutoff=25); Protein/Creatinine Ratio,Urine 0.25 mg/mg (0.00-0.20)
[2019-09-03 23:47] LABS: Alanine Aminotransferase 7 Units/L (7-52); Aspartate Amino Transferase 10 Units/L (13-39); BUN/Creatinine Ratio 16 (6-26); Blood Urea Nitrogen 8 mg/dL (6-20); Lactate Dehydrogenase 100 Units/L (140-271); Uric Acid 5.1 mg/dL (2.3-7.6); eGFR For African Americans > 60 (> 60); eGFR For Non-African Americans > 60 (> 60)
== END | disposition home or self-care (01) ==
LOC: 1NENULAB
PROVIDERS: ADMIT Advanced Practice Midwife; ATTEND Advanced Practice Midwife

== ENCOUNTER → 2019-09-11 17:34 | Observation (INO) ==
[2019-09-11 15:31] LABS: Amphetamine Screen,Urine Negative ng/mL (Cutoff=1000); Barbiturate Screen,Urine Negative ng/mL (Cutoff=200); Benzodiazepines Screen,Urine Negative ng/mL (Cutoff=200); Cannabinoid Screen,Urine Negative ng/mL (Cutoff = 50); Cocaine Screen,Urine Negative ng/mL (Cutoff= 300); Opiate Screen,Urine Negative ng/mL (Cutoff=300); Phencyclidine Screen,Urine Negative ng/mL (Cutoff=25)
== END | disposition home or self-care (01) ==
LOC: 1NENULAB
PROVIDERS: ADMIT Advanced Practice Midwife; ATTEND Advanced Practice Midwife

== ENCOUNTER 2019-09-12 05:00 | Inpatient (IN) ==
[2019-09-12 04:07] LABS: Amphetamine Screen,Urine Negative ng/mL (Cutoff=1000); Barbiturate Screen,Urine Negative ng/mL (Cutoff=200); Benzodiazepines Screen,Urine Negative ng/mL (Cutoff=200); Cannabinoid Screen,Urine Negative ng/mL (Cutoff = 50); Cocaine Screen,Urine Negative ng/mL (Cutoff= 300); Opiate Screen,Urine Negative ng/mL (Cutoff=300); Phencyclidine Screen,Urine Negative ng/mL (Cutoff=25)
[~2019-09-12 05:00] MED LIST changes: +*HR* Nalbuphine 10 MG/ML AMPUL IVP PRN; -*HR* Nalbuphine 20 MG/ML AMPUL IVP PRN; -Ringers Solution, Lactated 1,000 ML IVC ONE; -Ringers Solution, Lactated 1,000 ML ONE
[2019-09-12 05:38] LABS: Basophils # 0.1 K/mcL (0.0-0.2); Basophils % 0.4 %; Eosinophils # 0.1 K/mcL (0.0-0.6); Eosinophils % 0.7 %; Hematocrit 33.9 % (35.3-44.9); Hemoglobin 12.1 g/dL (11.5-15.4); Immature Granulocytes % 1.4 % (0-4); Lymphocytes # 3.9 K/mcL (0.6-4.6); Lymphocytes % 21.4 %; Mean Corpuscular HGB Conc 35.7 g/dL (31.6-35.5); Mean Corpuscular Hemoglobin 33.3 pg (28.0-33.3); Mean Corpuscular Volume 93.4 fL (83.0-100.0); Monocytes # 0.8 K/mcL (0.0-1.3); Monocytes % 4.6 %; Neutrophils # 13.1 K/mcL (1.6-8.9); Platelet Count 346 K/mcL (140-400); Red Blood Count 3.63 M/mcL (3.82-4.97); Red Cell Distribution Width 13.5 % (11.5-14.5); Segmented Neutrophils % 71.5 %; White Blood Count 18.3 K/mcL (4.3-11.1)
[2019-09-12] MEDS: Oxytocin 20 units/ LR 1000 mL 20 UNIT/1,000 ML BAG IVC SCH ×2 (06:04→15:45)
[2019-09-12] MEDS: Ringers Solution, Lactated 1,000 ML IVC SCH ×3 (06:04→14:13)
[2019-09-12] MEDS ORDERED: *HR* FentaNYL (PF) 100 MCG/2 ML VIAL EP ONE (11:08)
[2019-09-12] MEDS ORDERED: Bupivacaine-MPF 0.25% 10 ML VIAL EP ONE (11:08)
[2019-09-12] MEDS ORDERED: Epidural Premix (fent/bupiv) 110 ML EP SCH (11:15)
[2019-09-12] MEDS ORDERED: Ringers Solution, Lactated 1,000 ML ONE (11:56)
[2019-09-12] MEDS ORDERED: Bupivacaine-MPF 0.25% 10 ML VIAL ONE (12:07)
[2019-09-12] MEDS ORDERED: *HR* FentaNYL (PF) 100 MCG/2 ML VIAL ONE (12:07)
[2019-09-12] MEDS ORDERED: Lidocaine -MPF 2% 5 ML VIAL ONE (12:11)
[2019-09-12] MEDS ORDERED: EPHEDrine 50 MG/ML VIAL IVP PRN (12:47)
[2019-09-12] MEDS ORDERED: Measles/Mumps/Rubella Vacc 0.5 ML VIAL SQ PRN (17:00)
[2019-09-13] MEDS: Acetaminophen 325 MG TABLET PO PRN ×2 (01:57→08:52)
[2019-09-13 07:07] LABS: Basophils # 0.1 K/mcL (0.0-0.2); Basophils % 0.4 %; Eosinophils # 0.1 K/mcL (0.0-0.6); Eosinophils % 0.6 %; Hematocrit 33.3 % (35.3-44.9); Hemoglobin 11.3 g/dL (11.5-15.4); Immature Granulocytes % 1.5 % (0-4); Lymphocytes # 3.8 K/mcL (0.6-4.6); Lymphocytes % 21.1 %; Mean Corpuscular HGB Conc 33.9 g/dL (31.6-35.5); Mean Corpuscular Hemoglobin 32.7 pg (28.0-33.3); Mean Corpuscular Volume 96.2 fL (83.0-100.0); Mean Platelet Volume 10.4 fL (9.4-12.4); Monocytes # 0.8 K/mcL (0.0-1.3); Monocytes % 4.5 %; Neutrophils # 12.9 K/mcL (1.6-8.9); Platelet Count 297 K/mcL (140-400); Red Blood Count 3.46 M/mcL (3.82-4.97); Red Cell Distribution Width 13.6 % (11.5-14.5); Segmented Neutrophils % 71.9 %; White Blood Count 17.9 K/mcL (4.3-11.1)
[2019-09-13] MEDS: Oxytocin 20 units/ LR 1000 mL 20 UNIT/1,000 ML BAG IVC SCH (07:25)
[2019-09-13 07:58] VITALS: BP 118/77
[2019-09-13] MEDS ORDERED: Prenatal Vit/FA 1 EACH TABLET PO SCH (09:00)
== END 2019-09-13 16:16 | disposition home or self-care (01) | DRG 560 ==
LOC: 1NENULAB → 1NENUOBS 16:37
PROVIDERS: ADMIT Advanced Practice Midwife; ATTEND Advanced Practice Midwife

== ENCOUNTER → 2021-09-23 13:45 | Observation (INO) ==
[2021-09-23 09:57] LABS: Bacteria,Urine Few per hpf (None-Few); Bilirubin,Urine Negative (Negative); Blood,Urine Negative (Negative); Budding Yeast,Urine Few per hpf (None Seen); Clarity,Urine Turbid (Clear); Color,Urine Yellow (Yellow); Glucose,Urine (UA) Normal (Normal); Ketones,Urine Negative (Negative); Leukocyte Esterase,Urine Large (Negative); Mucus,Urine Few per lpf (None-Few); Nitrite,Urine Negative (Negative); PH,Urine 6.5 pH Units (5.0-8.0); Protein,Urine Trace mg/dL (Neg-Trace); RBC,Urine 0-3 per hpf (0-3); Specific Gravity,Urine 1.016 (1.010-1.025); Squamous Epithelial Cell,Urine Moderate per hpf (None-Few); Urobilinogen,Urine Normal (Normal)
== END | disposition home or self-care (01) ==
LOC: 1NENULAB
PROVIDERS: ADMIT Obstetrics & Gynecology; ATTEND Obstetrics & Gynecology

== ENCOUNTER → 2021-09-29 12:30 | Observation (INO) ==
[2021-09-29 09:46] LABS: Bilirubin,Urine Negative (Negative); Blood,Urine Negative (Negative); Clarity,Urine Clear (Clear); Color,Urine Light-Orange (Yellow); Glucose,Urine (UA) Normal (Normal); Ketones,Urine Negative (Negative); Leukocyte Esterase,Urine Small (Negative); Mucus,Urine Few per lpf (None-Few); Nitrite,Urine Negative (Negative); Protein,Urine 30 mg/dL (Neg-Trace); RBC,Urine 0-3 per hpf (0-3); Squamous Epithelial Cell,Urine Few per hpf (None-Few); Urobilinogen,Urine Normal (Normal); WBC,Urine 0-3 per hpf (0-3)
[2021-09-29 10:28] LABS: Candida DNA DETECTED (Not Detect); Gardnerella DNA Not Detected (Not Detect); Trichomonas DNA Not Detected (Not Detect)
[2021-09-29 11:00] LABS: Basophils % 0.3 %; Eosinophils # 0.1 K/mcL (0.0-0.6); Eosinophils % 0.6 %; Hematocrit 28.3 % (35.3-44.9); Immature Granulocytes % 0.9 % (0-4); Lymphocytes # 0.3 K/mcL (0.6-4.6); Lymphocytes % 2.8 %; Mean Corpuscular HGB Conc 35.3 g/dL (31.6-35.5); Mean Corpuscular Hemoglobin 33.1 pg (28.0-33.3); Mean Corpuscular Volume 93.7 fL (83.0-100.0); Mean Platelet Volume 10.7 fL (9.4-12.4); Monocytes # 0.5 K/mcL (0.0-1.3); Monocytes % 4.8 %; Neutrophils # 9.2 K/mcL (1.6-8.9); Platelet Count 219 K/mcL (140-400); Red Blood Count 3.02 M/mcL (3.82-4.97); Red Cell Distribution Width 13.2 % (11.5-14.5); Segmented Neutrophils % 90.6 %; White Blood Count 10.2 K/mcL (4.3-11.1)
[2021-09-29 11:27] LABS: Protein/Creatinine Ratio,Urine 0.12 mg/mg (0.00-0.20)
[~2021-09-29 12:30] MED LIST changes: -*HR* Nalbuphine 10 MG/ML AMPUL IVP PRN; +Acetaminophen 325 MG TABLET PO ONE; -Famotidine 20 MG/2 ML VIAL IVP PRN; -Metoclopramide 10 MG/2 ML VIAL IVP PRN; -Naloxone 0.4 MG/ML INJ IVP PRN; -Ondansetron 4 MG/2 ML VIAL IVP PRN; +Ringers Solution, Lactated 1,000 ML IVC SCH; +Ringers Solution, Lactated 1,000 ML ONE
== END | disposition home or self-care (01) ==
LOC: 1NENULAB
PROVIDERS: ADMIT Advanced Practice Midwife; ATTEND Advanced Practice Midwife

== ENCOUNTER → 2021-10-07 01:10 | Observation (INO) ==
[2021-10-07 00:55] LABS: Amorphous Sediment,Urine Few per hpf (None-Few); Bilirubin,Urine Negative (Negative); Blood,Urine Negative (Negative); Clarity,Urine Ex.Turbid (Clear); Color,Urine Yellow (Yellow); Glucose,Urine (UA) Normal (Normal); Hyaline Casts,Urine Few per lpf (None Seen); Ketones,Urine Negative (Negative); Leukocyte Esterase,Urine Large (Negative); Mucus,Urine Few per lpf (None-Few); Nitrite,Urine Negative (Negative); PH,Urine 6.5 pH Units (5.0-8.0); Protein,Urine 30 mg/dL (Neg-Trace); Specific Gravity,Urine 1.023 (1.010-1.025); Squamous Epithelial Cell,Urine Many per hpf (None-Few); Urobilinogen,Urine Normal (Normal); WBC,Urine 15-30 per hpf (0-3)
== END | disposition home or self-care (01) ==
LOC: 1NENULAB
PROVIDERS: ADMIT Advanced Practice Midwife; ATTEND Advanced Practice Midwife

== ENCOUNTER 2021-10-16 11:21 | Inpatient (IN) ==
[~2021-10-16 11:21] MED LIST changes: +*HR* Nalbuphine 10 MG/ML AMPUL IV PRN; -Acetaminophen 325 MG TABLET PO ONE; +Azithromycin 500 MG in 0.9 % Sodium Chloride 250 ML IVPB PRN; +EPHEDrine 50 MG/ML VIAL IVP PRN; +Epidural Premix (fent/bupiv) 110 ML EP SCH; +Famotidine 20 MG/2 ML VIAL IVP PRN; +Lidocaine 1% 20 ML MDV ID PRN; +Metoclopramide 10 MG/2 ML VIAL IVP PRN; +Naloxone 0.4 MG/ML INJ IVP PRN; +Ondansetron 4 MG/2 ML VIAL IVP PRN; -Ringers Solution, Lactated 1,000 ML IVC SCH; -Ringers Solution, Lactated 1,000 ML ONE
[2021-10-16] MEDS ORDERED: Ringers Solution, Lactated 1,000 ML IVC SCH (11:30)
[2021-10-16] MEDS ORDERED: Oxytocin 20 units/ LR 1000 mL 20 UNIT/1,000 ML BAG IVC SCH ×2 (11:30→17:00)
[2021-10-16 12:29] LABS: Basophils % 0.3 %; Eosinophils # 0.1 K/mcL (0.0-0.6); Eosinophils % 0.6 %; Hematocrit 34.1 % (35.3-44.9); Hemoglobin 11.6 g/dL (11.5-15.4); Immature Granulocytes % 0.9 % (0-4); Lymphocytes # 2.8 K/mcL (0.6-4.6); Lymphocytes % 20.9 %; Mean Corpuscular Hemoglobin 31.7 pg (28.0-33.3); Mean Corpuscular Volume 93.2 fL (83.0-100.0); Mean Platelet Volume 10.6 fL (9.4-12.4); Monocytes # 0.5 K/mcL (0.0-1.3); Monocytes % 3.9 %; Neutrophils # 9.9 K/mcL (1.6-8.9); Platelet Count 288 K/mcL (140-400); Red Blood Count 3.66 M/mcL (3.82-4.97); Red Cell Distribution Width 13.2 % (11.5-14.5); Segmented Neutrophils % 73.4 %; White Blood Count 13.4 K/mcL (4.3-11.1)
[2021-10-16 12:33] LABS: Amphetamine Screen,Urine Negative ng/mL (Cutoff=1000); Barbiturate Screen,Urine Negative ng/mL (Cutoff=200); Benzodiazepines Screen,Urine Negative ng/mL (Cutoff=200); Cannabinoid Screen,Urine Negative ng/mL (Cutoff = 50); Cocaine Screen,Urine Negative ng/mL (Cutoff= 300); Opiate Screen,Urine Negative ng/mL (Cutoff=300); Phencyclidine Screen,Urine Negative ng/mL (Cutoff=25)
[2021-10-16] MEDS ORDERED: Clindamycin 900 MG/50 ML 900 MG/50 ML IV.SOLN IVPB SCH ×2 (15:00→16:00)
[2021-10-16] MEDS ORDERED: Ondansetron ODT 4 MG TAB.RAPDIS SL PRN (16:54)
[2021-10-16] MEDS ORDERED: Measles/Mumps/Rubella Vacc 0.5 ML VIAL SQ PRN (16:54)
[2021-10-16] MEDS ORDERED: Benzocaine/Menthol 56 GM AEROSOL SPRAY TP PRN (16:54)
[2021-10-16] MEDS ORDERED: Lanolin 7 G OINT...G. TP PRN (16:54)
[2021-10-16] MEDS ORDERED: Acetaminophen 325 MG TABLET PO SCH (17:00)
[2021-10-16] MEDS: Ibuprofen 600 MG TABLET PO SCH (19:42)
[2021-10-16] MEDS: Nitrofurantoin (BID) 100 MG CAPSULE PO SCH (20:41)
[2021-10-17] MEDS: Ibuprofen 600 MG TABLET PO SCH ×2 (03:47→07:58)
[2021-10-17 04:05] LABS: Basophils % 0.2 %; Eosinophils # 0.1 K/mcL (0.0-0.6); Eosinophils % 0.5 %; Hematocrit 29.4 % (35.3-44.9); Hemoglobin 10.2 g/dL (11.5-15.4); Immature Granulocytes % 0.6 % (0-4); Lymphocytes # 3.1 K/mcL (0.6-4.6); Lymphocytes % 20.9 %; Mean Corpuscular HGB Conc 34.7 g/dL (31.6-35.5); Mean Corpuscular Hemoglobin 32.7 pg (28.0-33.3); Mean Corpuscular Volume 94.2 fL (83.0-100.0); Mean Platelet Volume 10.7 fL (9.4-12.4); Monocytes # 0.5 K/mcL (0.0-1.3); Monocytes % 3.3 %; Platelet Count 255 K/mcL (140-400); Red Blood Count 3.12 M/mcL (3.82-4.97); Segmented Neutrophils % 74.5 %; White Blood Count 14.8 K/mcL (4.3-11.1)
[2021-10-17] MEDS: Nitrofurantoin (BID) 100 MG CAPSULE PO SCH (07:58)
[2021-10-17 07:59] VITALS: BP 112/72; TEMP 98.1; O2SAT 96
[2021-10-17] MEDS ORDERED: Prenatal Vit/FA 1 EACH TABLET PO SCH (09:00)
[2021-10-17 16:00] VITALS: PULSE 62
== END 2021-10-17 17:48 | disposition home or self-care (01) | DRG 806 ==
LOC: 1NENULAB → 1NENUOBS 19:19
PROVIDERS: ADMIT Obstetrics & Gynecology; ATTEND Obstetrics & Gynecology